=== PATIENT | female | born 1935 | race Two or more races ===

== ENCOUNTER → 2017-05-25 | Outpatient (CLI) | payer MEDICAID, MEDICARE | END | disposition home or self-care (01) | LOC: RAD 16:18 | PROVIDERS: ATTEND Nurse Practitioner Gerontology | DX: M17.0 Bilateral primary osteoarthritis of knee (principal); M11.262 Other chondrocalcinosis, left knee; M25.461 Effusion, right knee; M23.42 Loose body in knee, left knee; G89.29 Other chronic pain; M81.0 Age-related osteoporosis without current pathological fracture; M85.88 Other specified disorders of bone density and structure, other site ==